=== PATIENT | female | born 1950 | race Caucasian/White ===

== ENCOUNTER 2019-06-09 11:01 | Emergency (ER) | payer MEDICARE, OTHER ==
[~2019-06-09] VITALS: Ht 165.1 cm; Wt 104.3 kg
[2019-06-09] MEDS ORDERED: PAXIL10 MG PO (12:17)
[2019-06-09] MEDS ORDERED: NITROGLYCERIN0.4 MG SUBLING (12:18)
[2019-06-09] MEDS ORDERED: ZYRTEC10 M5 PO (12:18)
[2019-06-09] MEDS ORDERED: ASPIR 8181 MG PO (12:18)
[2019-06-09] MEDS ORDERED: XARELTO20 MG PO (12:19)
[2019-06-09] MEDS ORDERED: LASIX 40 MG TAB40 M2 PO (12:20)
[2019-06-09] MEDS ORDERED: VITAMIN D3400 UNIT PO (12:20)
[2019-06-09] MEDS ORDERED: PRAVACHOL40 MG PO (12:21)
[2019-06-09] MEDS ORDERED: PACERONE 200 M200 M1 PO (12:22)
[2019-06-09] MEDS ORDERED: NORVASC5 MG PO (12:22)
[2019-06-09] MEDS ORDERED: BENAZEPRIL HCL40 MG PO (12:22)
[2019-06-09] MEDS ORDERED: SORINE 80 MG TA80 M1 PO (12:23)
[2019-06-09] MEDS ORDERED: NORCO 5-325 TA1 EAC1 PO (12:27)
[2019-06-09 13:45] VITALS: BP 138/72
== END 2019-06-09 13:46 | disposition home or self-care (01) ==
LOC: M.ERS 11:01
DX: I48.2 Chronic atrial fibrillation (principal); F41.9 Anxiety disorder, unspecified; Z88.5 Allergy status to narcotic agent; Z88.0 Allergy status to penicillin; Z98.890 Other specified postprocedural states; Z95.0 Presence of cardiac pacemaker; S92.252A Displaced fracture of navicular [scaphoid] of left foot, initial encounter for closed fracture; X50.0XXA Overexertion from strenuous movement or load, initial encounter; Y92.89 Other specified places as the place of occurrence of the external cause; Y93.89 Activity, other specified; Y99.8 Other external cause status

== ENCOUNTER → 2019-06-26 | Outpatient (CLI) | payer MEDICARE, OTHER ==
[~2019-06-26] MED LIST: ASPIR 8181 MG PO; BENAZEPRIL HCL40 MG PO; LASIX 40 MG TAB40 M2 PO; NITROGLYCERIN0.4 MG SUBLING; NORCO 5-325 TA1 EAC1 PO; NORVASC5 MG PO; PACERONE 200 M200 M1 PO; PAXIL10 MG PO; PRAVACHOL40 MG PO; SORINE 80 MG TA80 M1 PO; VITAMIN D3400 UNIT PO; XARELTO20 MG PO; ZYRTEC10 M5 PO
== END ==
LOC: M.CT 11:30
DX: S93.326A Dislocation of tarsometatarsal joint of unspecified foot, initial encounter (principal); S96.912A Strain of unspecified muscle and tendon at ankle and foot level, left foot, initial encounter; M19.072 Primary osteoarthritis, left ankle and foot; M77.32 Calcaneal spur, left foot; M25.872 Other specified joint disorders, left ankle and foot; M76.62 Achilles tendinitis, left leg; X58.XXXA Exposure to other specified factors, initial encounter; Y93.89 Activity, other specified; Y92.89 Other specified places as the place of occurrence of the external cause; Y99.8 Other external cause status

== ENCOUNTER 2019-07-23 13:05 | Emergency (ER) | payer MEDICARE, OTHER ==
[~2019-07-23] VITALS: Ht 167.6 cm; Wt 90.7 kg
[2019-07-23] MEDS ORDERED: PROTONIX40 M1 PO (13:24)
[2019-07-23] MEDS ORDERED: NORCO 5-325 TA1 EAC1 PO (14:47)
[2019-07-23] MEDS ORDERED: LIDODERM1 EACH TRANSDERM (14:48)
[2019-07-23] MEDS ORDERED: PERCOCET PO (14:57)
[2019-07-23] MEDS ORDERED: ONDANSETRON HCL4 M2 PO (14:57)
[2019-07-23 15:11] VITALS: BP 134/69
== END 2019-07-23 15:12 | disposition home or self-care (01) ==
LOC: M.ERS 13:05
DX: M25.511 Pain in right shoulder (principal); F41.9 Anxiety disorder, unspecified; Z98.890 Other specified postprocedural states; Z95.0 Presence of cardiac pacemaker; Z88.5 Allergy status to narcotic agent; Z88.0 Allergy status to penicillin

== ENCOUNTER 2019-08-31 09:44 | Emergency (ER) | payer MEDICARE, OTHER ==
[~2019-08-31] VITALS: Ht 170.2 cm; Wt 104.3 kg
[~2019-08-31 09:44] MED LIST changes: +LIDODERM1 EACH TRANSDERM; +ONDANSETRON HCL4 M2 PO; +PERCOCET PO; +PROTONIX40 M1 PO
[2019-08-31 09:57] VITALS: BP 139/85
[2019-08-31] MEDS ORDERED: NORCO 5-325 TA1 EAC1 PO (10:24)
== END 2019-08-31 10:46 | disposition home or self-care (01) ==
LOC: M.ERS 09:44
DX: S63.592A Other specified sprain of left wrist, initial encounter (principal); I48.91 Unspecified atrial fibrillation; F41.9 Anxiety disorder, unspecified; Z88.5 Allergy status to narcotic agent; Z88.0 Allergy status to penicillin; Z98.890 Other specified postprocedural states; W18.39XA Other fall on same level, initial encounter; Y93.89 Activity, other specified; Y92.89 Other specified places as the place of occurrence of the external cause; Y99.8 Other external cause status

== ENCOUNTER → 2019-09-17 | Outpatient (CLI) | payer MEDICARE, OTHER ==
--- NOTE | 2019-09-17 10:32 | 2DMMODE ---
[place] [address] 2 D/M-MODE ECHOCARDIOGRAM Name: AME ARIAS Room: [facility]#: [id number] Admission: 09/17/19 Attend Phys: Renea Chowdhury, Discharge: Date of : 52 Date of Service: 09/17/19 1031 Report #: [id number] THIS REPORT FOR: //name// APPROVED REPORT Study performed: 09/17/2019 07:54:09 EXAM: Comprehensive 2D, Doppler, and color-flow Echocardiogram Patient Location: Out-Patient BSA: 2.11 HR: 60 bpm BP: 118/78 mmHg Other Information Study Quality: Fair Indications Atrial Fibrillation 2D Dimensions IVSd: 13.08 (7-11mm) LVOT Diam: 20.45 (18-24mm) LVDd: 43.91 mm PWd: 10.86 (7-11mm) Ascending Ao: 32.44 (22-36mm) LVDs: 26.73 (25-40mm) Aortic Root: 27.53 mm Volumes Left Atrial Volume (Systole) LA ESV Index: 22.30 mL/m2 Aortic Valve AoV Peak Grey.: 1.72 m/s AO Peak Gr.: 11.88 mmHg LVOT Max P.79 mmHg AO Mean Gr.: 6.14 mmHg LVOT Mean P.84 mmHg LVOT Max V: 0.97 m/s AO V2 VTI: 29.95 cm LVOT Mean V: 0.62 m/s BON (VTI): 2.19 cm2 LVOT V1 VTI: 19.92 cm Mitral Valve E/A Ratio: 1.30 MV Decel. Time: 205.12 ms MV E Max Grey.: 0.56 m/s MV PHT: 59.49 ms MVA (PHT): 3.70 [place] [address] 2 D/M-MODE ECHOCARDIOGRAM Name: AME ARIAS Room: [facility]#: [id number] Admission: 09/17/19 Attend Phys: Renea Chowdhury, Discharge: Date of : 52 Date of Service: 09/17/19 1031 Report #: [id number] TDI E/Lateral E': 5.60 E/Medial E': 9.33 Medial E' Grey.: 0.06 m/s Lateral E' Grey.: 0.10 m/s Pulmonary Valve PV Peak Grey.: 1.02 m/s PV Peak Gr.: 4.15 mmHg Left Ventricle The left ventricle is normal size. There is normal LV segmental wall motion. There is normal left ventricular wall thickness. Left ventricular systolic function is normal. The left ventricular ejection fraction is within the normal range. LVEF is 55-60%. The left ventricular diastolic function is normal. Right Ventricle The right ventricle is normal size. The right ventricular systolic function is normal. Pacemaker lead is present in the right ventricle. Atria The left atrium size is normal. Pacemaker lead is present in the right atrium. Aortic Valve The aortic valve is not well visualized. No aortic regurgitation is present. There is no aortic valvular stenosis. Mitral Valve The mitral valve is normal in structure. Mild mitral regurgitation. No evidence of mitral valve stenosis. Tricuspid Valve The tricuspid valve is normal in structure. There is no tricuspid valve regurgitation noted. Pulmonic Valve The pulmonary valve is normal in structure. There is no pulmonic valvular regurgitation. Great Vessels The aortic root is normal in size. IVC is not well visualized. Pericardium There [place] [address] 2 D/M-MODE ECHOCARDIOGRAM Name: AME ARIAS Room: [facility]#: [id number] Admission: 09/17/19 Attend Phys: Renea Chowdhury, Discharge: Date of : 52 Date of Service: 09/17/19 1031 Report #: [id number] <Conclusion> LVEF is 55-60%. Mild mitral regurgitation. <ELECTRONICALLY SIGNED> By: Fabio Webb MD, FACC 09/17/191030 30 30 Fabio Webb MD, [facility] /INF
--- NOTE | 2019-09-19 08:52 | PF ---
[place] [address] PULMONARY FUNCTION REPORT Name: AME ARIAS Room: [facility] Bran#: [id number] Admission: 09/17/19 Attend Phys: Renea Chowdhury RN Discharge: Date of : 52 Report #: [id number] THIS REPORT FOR: //name// CC: Shahida Chowdhury DATE OF SERVICE: 09/17/2019 REQUESTING PHYSICIAN: Renea Chowdhury, nurse practitioner. Spirometry was done revealing a normal FEV1 of 2.21, which was 93% of predicted. FEV1/FVC ratio was 81%. No significant change seen after inhaled bronchodilator. Mid flows were at lower range of normal. Lung volumes by postop plethysmography reveal a normal TLC and other volumes. Diffusion capacity was mildly diminished. IMPRESSION: Essentially normal pulmonary function studies with only very minimal decrease in flows at the level of the small airways. Clinical correlation is advised. <ELECTRONICALLY SIGNED> By: Debbie Damon MD 09/19/19 0852 1040 [id number] Damon MD /nt
== END ==
LOC: M.CRD 08-27 18:23
DX: I34.0 Nonrheumatic mitral (valve) insufficiency (principal); I48.0 Paroxysmal atrial fibrillation; I10 Essential (primary) hypertension; Z95.0 Presence of cardiac pacemaker; Z79.899 Other long term (current) drug therapy

== ENCOUNTER → 2019-09-23 | Outpatient (CLI) | payer MEDICARE, OTHER | LOC: M.RAD 14:45 | DX: R91.8 Other nonspecific abnormal finding of lung field (principal); Z79.899 Other long term (current) drug therapy; Z95.0 Presence of cardiac pacemaker; Z88.8 Allergy status to other drugs, medicaments and biological substances ==

== ENCOUNTER → 2019-09-24 | Outpatient (CLI) | payer MEDICARE, OTHER | LOC: M.LAB 13:55 | DX: E03.9 Hypothyroidism, unspecified (principal) ==

== ENCOUNTER → 2019-12-31 | Outpatient (CLI) | payer MEDICARE, OTHER ==
[~2019-12-31] MED LIST changes: +PACERONE200 MG PO
[2019-12-31 09:50] VITALS: BP 131/87
[2019-12-31 09:54] LABS: HEMATOCRIT 40.1 % (37.0-47.0); HEMOGLOBIN 13.8 gm/dL (12.0-15.0); MCH 33.2 pg (26.0-34.0); MCHC 34.5 g/dL (28.0-37.0); MCV 96.4 fL (80.0-100.0); MPV 7.9 fl. (7.2-11.1); RBC 4.16 mil/uL (4.20-5.00); RDW-CV 14.2 % (10.5-14.5)
[2019-12-31 10:06] LABS: CALCIUM 8.6 mg/dL (8.5-10.1); CREATININE 1.3 mg/dL (0.6-1.3); POTASSIUM 4.1 mmol/L (3.5-5.1)
[2019-12-31 10:10] LABS: ALBUMIN 3.2 g/dL (3.4-5.0); TOTAL BILIRUBIN 0.7 mg/dL (<0.1-1.0); TOTAL PROTEIN 7.6 g/dL (6.4-8.2)
[2019-12-31 10:35] VITALS: BP 132/68
[2019-12-31 10:40] VITALS: BP 112/60
[2019-12-31 11:02] VITALS: BP 114/80
== END | disposition home or self-care (01) ==
LOC: M.CL 09:21
PROVIDERS: Internal Medicine Cardiovascular Disease
DX: I48.21 Permanent atrial fibrillation (principal); I10 Essential (primary) hypertension; I25.10 Atherosclerotic heart disease of native coronary artery without angina pectoris; G47.30 Sleep apnea, unspecified; E78.2 Mixed hyperlipidemia; Z79.01 Long term (current) use of anticoagulants; Z95.0 Presence of cardiac pacemaker; Z98.890 Other specified postprocedural states; Z87.891 Personal history of nicotine dependence; Z88.0 Allergy status to penicillin; Z88.8 Allergy status to other drugs, medicaments and biological substances; Z79.899 Other long term (current) drug therapy; Z87.442 Personal history of urinary calculi

== ENCOUNTER 2020-01-01 23:32 | Inpatient (IN) | payer MEDICARE, OTHER ==
[~2020-01-01] VITALS: Ht 170.2 cm; Wt 111.6 kg
[~2020-01-01 23:32] MED LIST changes: -PACERONE200 MG PO
[2020-01-01] MEDS ORDERED: PACERONE200 MG PO (23:40)
[2020-01-01 23:41] VITALS: BP 155/84
[2020-01-02 00:16] LABS: ABSOLUTE BASOPHILS 0.1 thou/uL (0.0-0.2); ABSOLUTE EOSINOPHILS 0.4 thou/uL (0.0-0.7); ABSOLUTE LYMPHOCYTES 1.6 thou/uL (0.8-5.3); ABSOLUTE MONOCYTES 0.8 thou/uL (0.0-1.2); ABSOLUTE NEUTROPHILS 5.4 thou/uL (1.6-8.1); EOSINOPHILS 4.5 %; HEMATOCRIT 36.4 % (37.0-47.0); HEMOGLOBIN 12.6 gm/dL (12.0-15.0); LYMPHOCYTES 18.9 %; MCH 33.5 pg (26.0-34.0); MCHC 34.6 g/dL (28.0-37.0); MCV 96.7 fL (80.0-100.0); MPV 7.8 fl. (7.2-11.1); NUCLEATED RBCS 0 /100WBC; PLATELET COUNT* 296 thou/uL (150-400); POLYS 65.6 %; RBC 3.76 mil/uL (4.20-5.00); WBC 8.2 thou/uL (4.0-11.0)
[2020-01-02 00:27] LABS: CALCIUM 8.5 mg/dL (8.5-10.1); CREATININE 1.3 mg/dL (0.6-1.3); POTASSIUM 3.8 mmol/L (3.5-5.1)
[2020-01-02 00:28] LABS: INR 1.2; PROTIME 12.5 Seconds (9.20-11.50)
[2020-01-02 00:38] LABS: ALBUMIN 2.9 g/dL (3.4-5.0); TOTAL BILIRUBIN 0.5 mg/dL (<0.1-1.0); TOTAL PROTEIN 6.9 g/dL (6.4-8.2)
[2020-01-02 02:15] VITALS: BP 134/75
[2020-01-02 02:27] LABS: INFLUENZA A ANTIGEN Negative (Negative); INFLUENZA B ANTIGEN Negative (Negative)
[2020-01-02 02:36] VITALS: BP 144/80
[2020-01-02 08:20] VITALS: BP 111/59
[2020-01-02 11:49] VITALS: BP 118/48
[2020-01-02 13:45] LABS: CALCIUM 8.3 mg/dL (8.5-10.1); CREATININE 1.2 mg/dL (0.6-1.3); MAGNESIUM 1.8 mg/dL (1.8-2.4)
--- NOTE | 2020-01-02 16:37 | EKG ---
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
--- NOTE | 2020-01-02 18:19 | 2DMMODE ---
[facility] [address] [place] [address] 2 D/M-MODE ECHOCARDIOGRAM Name: HUGOAME Silvia Room: [facility]- ADM IN .R#: [id number] Admission: 01/02/20 Attend Phys: Yinka Barajas Discharge: Date of : 52 Date of Service: 01/02/20 1817 Report #: [id number] THIS REPORT FOR: cc: Barrington Berrios Gary DO Liston, Michael J. MD [facility] ~ APPROVED REPORT Study performed: 01/02/2020 13:49:49 EXAM: Limited 2D Echocardiogram Patient Location: In-Patient Room #: [facility] Status: routine BSA: 2.21 HR: 68 bpm BP: 118/48 mmHg Rhythm: NSR Other Information Study Quality: Good Indications Dyspnea Volumes Left Atrial Volume (Systole) LA ESV Index: 51.80 mL/m2 Left Ventricle The left ventricle is normal size. There is normal LV segmental wall motion. Mild concentric left ventricular hypertrophy. The left ventricular systolic function is normal. LVEF is 55-60%. Right Ventricle The right ventricle is normal size. The right ventricular systolic function is normal. Atria Left atrium is moderately dilated. Aortic Valve The aortic valve is normal in structure. Mitral Valve [place] [address] 2 D/M-MODE ECHOCARDIOGRAM Name: HUGOAME Silvia Room: [address] ADM IN M.R.#: [id number] Admission: 01/02/20 Attend Phys: Yinka Barajas Discharge: Date of : 52 Date of Service: 01/02/201816 Report #: [id number] The mitral valve is normal in structure. Trace mitral regurgitation. Tricuspid Valve The tricuspid valve is normal in structure. Trace tricuspid regurgitation. Pulmonic Valve The pulmonary valve is normal in structure. Great Vessels The aortic root is normal in size. IVC is not well visualized. Pericardium There is no pericardial effusion. <Conclusion> The left ventricle is normal size. Mild concentric left ventricular hypertrophy. The left ventricular systolic function is normal. LVEF is 55-60%. Left atrium is moderately dilated. <ELECTRONICALLY SIGNED> By: Moody Osborne MD, FACC 01/02/201816 16 16 Moody Osborne MD, FACC /INF
[2020-01-02 18:24] VITALS: BP 122/53
[2020-01-02 20:00] VITALS: BP 122/65
[2020-01-03] VITALS: BP 141/63
[2020-01-03 04:00] VITALS: BP 103/44
[2020-01-03 08:00] VITALS: BP 99/45
[2020-01-03 11:40] LABS: HEMATOCRIT 34.4 % (37.0-47.0); HEMOGLOBIN 11.7 gm/dL (12.0-15.0); MCH 33.2 pg (26.0-34.0); MCHC 34.1 g/dL (28.0-37.0); MCV 97.6 fL (80.0-100.0); MPV 8.4 fl. (7.2-11.1); RBC 3.53 mil/uL (4.20-5.00); RDW-CV 14.2 % (10.5-14.5); WBC 11.4 thou/uL (4.0-11.0)
[2020-01-03 12:03] LABS: CALCIUM 7.9 mg/dL (8.5-10.1); CREATININE 1.2 mg/dL (0.6-1.3); MAGNESIUM 1.9 mg/dL (1.8-2.4); POTASSIUM 3.4 mmol/L (3.5-5.1)
[2020-01-03 12:08] VITALS: BP 159/78
[2020-01-03 16:16] VITALS: BP 140/49
[2020-01-03 20:00] VITALS: BP 120/60
[2020-01-04 00:30] VITALS: BP 144/71
[2020-01-04 04:06] LABS: ABSOLUTE LYMPHOCYTES 1.1 thou/uL (0.8-5.3); ABSOLUTE NEUTROPHILS 9.5 thou/uL (1.6-8.1); BASOPHILS 0.2 %; EOSINOPHILS 0.1 %; HEMATOCRIT 34.4 % (37.0-47.0); HEMOGLOBIN 11.7 gm/dL (12.0-15.0); LYMPHOCYTES 9.1 %; MCHC 33.9 g/dL (28.0-37.0); MCV 97.5 fL (80.0-100.0); MONOCYTES 8.8 %; MPV 7.7 fl. (7.2-11.1); NUCLEATED RBCS 0 /100WBC; PLATELET COUNT* 288 thou/uL (150-400); POLYS 81.8 %; RBC 3.53 mil/uL (4.20-5.00); RDW-CV 14.2 % (10.5-14.5); WBC 11.6 thou/uL (4.0-11.0)
[2020-01-04 04:26] VITALS: BP 132/72
[2020-01-04 04:30] LABS: CREATININE 1.1 mg/dL (0.6-1.3); MAGNESIUM 2.1 mg/dL (1.8-2.4)
[2020-01-04 08:00] VITALS: BP 119/64
[2020-01-04 12:51] VITALS: BP 105/49
[2020-01-04 16:00] VITALS: BP 86/45
[2020-01-04 20:00] VITALS: BP 108/42
[2020-01-05] VITALS (7 sets, daily range): BP systolic 92–139; BP diastolic 32–62
[2020-01-05 04:57] LABS: HEMATOCRIT 31.8 % (37.0-47.0); HEMOGLOBIN 10.9 gm/dL (12.0-15.0); MCH 33.4 pg (26.0-34.0); MCHC 34.2 g/dL (28.0-37.0); MCV 97.7 fL (80.0-100.0); MPV 7.5 fl. (7.2-11.1); RBC 3.25 mil/uL (4.20-5.00); WBC 10.5 thou/uL (4.0-11.0)
[2020-01-05 05:26] LABS: CREATININE 1.2 mg/dL (0.6-1.3); MAGNESIUM 2.1 mg/dL (1.8-2.4); POTASSIUM 3.9 mmol/L (3.5-5.1)
[2020-01-06 03:50] VITALS: BP 108/63
[2020-01-06 05:56] LABS: CALCIUM 7.7 mg/dL (8.5-10.1); CREATININE 1.2 mg/dL (0.6-1.3); MAGNESIUM 2.3 mg/dL (1.8-2.4); POTASSIUM 4.1 mmol/L (3.5-5.1)
[2020-01-06 08:00] VITALS: BP 95/46
[2020-01-06 09:53] LABS: ABSOLUTE BASOPHILS 0.1 thou/uL (0.0-0.2); ABSOLUTE EOSINOPHILS 0.2 thou/uL (0.0-0.7); ABSOLUTE LYMPHOCYTES 1.1 thou/uL (0.8-5.3); ABSOLUTE MONOCYTES 1.3 thou/uL (0.0-1.2); ABSOLUTE NEUTROPHILS 8.9 thou/uL (1.6-8.1); BASOPHILS 1.1 %; EOSINOPHILS 1.4 %; HEMATOCRIT 31.2 % (37.0-47.0); HEMOGLOBIN 10.6 gm/dL (12.0-15.0); LYMPHOCYTES 9.3 %; MCH 33.4 pg (26.0-34.0); MCV 98.3 fL (80.0-100.0); MONOCYTES 11.5 %; MPV 8.1 fl. (7.2-11.1); NUCLEATED RBCS 0 /100WBC; PLATELET COUNT* 310 thou/uL (150-400); POLYS 76.7 %; RBC 3.17 mil/uL (4.20-5.00); RDW-CV 14.1 % (10.5-14.5); WBC 11.6 thou/uL (4.0-11.0)
--- NOTE | 2020-01-06 13:44 | CON ---
[address] [address] CONSULTATION Name: AME ARIAS Room: [address] IN .R.#: [id number] Admission: 01/02/20 Attend Phys: Silvia Guerrier Discharge: Date of : 52 Report #: [id number] THIS REPORT FOR: //name// cc: Barrington Berrios Gary DO ~ THIS REPORT FOR: //name// CC: Barrington Barajas DATE OF SERVICE: 01/06/2020 INFECTIOUS DISEASE CONSULTATION ATTENDING PHYSICIAN: Yinka Barajas DO REASON FOR EVALUATION: Evaluation for COVID-19. HISTORY OF PRESENT ILLNESS: Chart reviewed, patient examined. This is a 69-year-old with history of chronic AFib, anxiety who presented to the Emergency Room on the with complaints of dyspnea, seemed to be worse traditionally when lying flat. She is on diuretic for associated lower extremity swelling as well. Had not had any chest pain, abdominal pain, nausea, vomiting or diarrhea. Initial chest x-ray showed some changes intermittently throughout the hospitalization. There are some low-grade temperature elevations, the highest recorded was 99.8. She is coughing quite a bit at this point. She is generally lucid. She has been on levofloxacin. There has been progression on her chest x-ray that involves bilateral pulmonary infiltrates. ALLERGIES: PENICILLIN, CODEINE. MEDICATIONS: Include fluticasone, budesonide, furosemide, benzonatate, guaifenesin, atorvastatin, rivaroxaban, levofloxacin, promethazine as needed. PAST MEDICAL HISTORY: As described above, anxiety, chronic atrial fibrillation, implantable cardiac event monitor pacemaker. SOCIAL HISTORY: Former smoker. Fairly regular ethanol use. No illicit drug use. FAMILY HISTORY: Noncontributory. REVIEW OF SYSTEMS: Otherwise, unremarkable. PHYSICAL EXAMINATION: GENERAL: She is alert, cooperative, appropriate[place] [address] CONSULTATION Name: HUGOAME D Room: [address]#: [id number] Admission: 01/02/20 Attend Phys: Silvia Guerrier Discharge: Date of : 52 Report #: [id number] respiratory distress. She is on supplemental oxygen. VITAL SIGNS: Temperature 99.0, pulse 60, respirations 16, blood pressure 108/63. SKIN: Warm, dry, no rashes. HEENT: Normocephalic. Extraocular muscles intact. NECK: Supple. LUNGS: Few scattered coarse breath sounds. HEART: Regular. I do not appreciate a murmur. ABDOMEN: Soft, nontender, nondistended. EXTREMITIES: No cyanosis. GENITOURINARY: Deferred. RECTAL: Deferred. LABORATORY DATA: CBC: White count elevated at 11.6, 11.4 on admission; hemoglobin and hematocrit 10.6 and 31.2; platelets of 310. She does have a lymphocytopenia. She was noted to be 1100. Chest x-ray showed cardiomegaly with moderately extensive bilateral infiltrates, low overall change. The infiltrates may represent edema. MRSA was negative per surveillance. Sodium 134, potassium 4.1, chloride 101, bicarb is 31, anion gap of 2, BUN and creatinine 25 and 1.2, glucose of 125. Estimated GFR 45. Pneumococcal and legionella urinary antigens were negative. Blood cultures are sterile thus far. ASSESSMENT AND PLAN: Low-grade fevers, cough. The patient certainly has other potential causes including congestive heart failure; however, given the symptomatology, it is reasonable to go ahead and test for COVID-19. We will put her in isolation. We did instruct the patient and the family about the details of how this would be from their perspective. At this point, she is not overtly toxic. We will monitor expectantly, certainly if her signs and symptoms of worsening clinical picture. <ELECTRONICALLY SIGNED> By: Mansoor Preciado MD 01/06/20 1344 1202 1337Jopriyanka Preciado MD /nt
[2020-01-06 16:00] VITALS: BP 113/59
[2020-01-06 19:55] VITALS: BP 119/37
[2020-01-06 23:44] VITALS: BP 117/52
[2020-01-07 04:25] VITALS: BP 115/43
[2020-01-07 06:26] LABS: ABSOLUTE BASOPHILS 0.1 thou/uL (0.0-0.2); ABSOLUTE EOSINOPHILS 0.1 thou/uL (0.0-0.7); ABSOLUTE LYMPHOCYTES 0.9 thou/uL (0.8-5.3); ABSOLUTE MONOCYTES 1.6 thou/uL (0.0-1.2); ABSOLUTE NEUTROPHILS 9.8 thou/uL (1.6-8.1); BASOPHILS 0.9 %; EOSINOPHILS 1.2 %; HEMATOCRIT 30.7 % (37.0-47.0); HEMOGLOBIN 10.5 gm/dL (12.0-15.0); LYMPHOCYTES 7.4 %; MCH 33.4 pg (26.0-34.0); MCHC 34.2 g/dL (28.0-37.0); MCV 97.6 fL (80.0-100.0); MONOCYTES 12.9 %; MPV 7.6 fl. (7.2-11.1); NUCLEATED RBCS 0 /100WBC; PLATELET COUNT* 340 thou/uL (150-400); POLYS 77.6 %; RBC 3.15 mil/uL (4.20-5.00); RDW-CV 13.9 % (10.5-14.5); WBC 12.7 thou/uL (4.0-11.0)
[2020-01-07 06:41] LABS: CREATININE 1.1 mg/dL (0.6-1.3); POTASSIUM 4.5 mmol/L (3.5-5.1)
[2020-01-07 08:00] VITALS: BP 101/46
[2020-01-07 11:48] VITALS: BP 105/58
[2020-01-07 16:44] VITALS: BP 112/65
[2020-01-07 19:25] VITALS: BP 145/50
[2020-01-07 23:52] VITALS: BP 112/40
[2020-01-08 04:03] VITALS: BP 164/83
[2020-01-08 08:00] VITALS: BP 115/47
[2020-01-08 12:00] VITALS: BP 104/61
[2020-01-08 16:00] VITALS: BP 94/60
[2020-01-08 20:00] VITALS: BP 111/57
[2020-01-09 00:05] VITALS: BP 141/69
[2020-01-09 04:18] VITALS: BP 97/44
[2020-01-09 04:41] LABS: ABSOLUTE BASOPHILS 0.1 thou/uL (0.0-0.2); ABSOLUTE EOSINOPHILS 0.2 thou/uL (0.0-0.7); ABSOLUTE LYMPHOCYTES 1.2 thou/uL (0.8-5.3); ABSOLUTE MONOCYTES 1.7 thou/uL (0.0-1.2); ABSOLUTE NEUTROPHILS 10.1 thou/uL (1.6-8.1); BASOPHILS 0.6 %; EOSINOPHILS 1.5 %; HEMATOCRIT 29.6 % (37.0-47.0); LYMPHOCYTES 9.1 %; MCH 32.8 pg (26.0-34.0); MCHC 33.8 g/dL (28.0-37.0); MONOCYTES 12.7 %; MPV 7.4 fl. (7.2-11.1); NUCLEATED RBCS 0 /100WBC; PLATELET COUNT* 356 thou/uL (150-400); POLYS 76.1 %; RBC 3.05 mil/uL (4.20-5.00); RDW-CV 13.9 % (10.5-14.5); WBC 13.3 thou/uL (4.0-11.0)
[2020-01-09 05:02] LABS: CALCIUM 7.6 mg/dL (8.5-10.1); POTASSIUM 4.2 mmol/L (3.5-5.1); TOTAL BILIRUBIN 0.9 mg/dL (<0.1-1.0); TOTAL PROTEIN 5.9 g/dL (6.4-8.2)
[2020-01-09 08:00] VITALS: BP 108/46
[2020-01-09 14:08] VITALS: BP 106/34
[2020-01-09 17:54] VITALS: BP 106/46
[2020-01-09 20:00] VITALS: BP 104/44
[2020-01-10 00:16] VITALS: BP 119/52
[2020-01-10 04:00] VITALS: BP 110/67
[2020-01-10 04:32] LABS: ABSOLUTE LYMPHOCYTES 0.6 thou/uL (0.8-5.3); ABSOLUTE MONOCYTES 1.3 thou/uL (0.0-1.2); ABSOLUTE NEUTROPHILS 11.2 thou/uL (1.6-8.1); BASOPHILS 0.3 %; HEMATOCRIT 30.3 % (37.0-47.0); HEMOGLOBIN 10.2 gm/dL (12.0-15.0); LYMPHOCYTES 4.8 %; MCH 33.1 pg (26.0-34.0); MCHC 33.8 g/dL (28.0-37.0); MCV 98.1 fL (80.0-100.0); MONOCYTES 9.9 %; MPV 7.5 fl. (7.2-11.1); NUCLEATED RBCS 0 /100WBC; RBC 3.09 mil/uL (4.20-5.00); RDW-CV 14.1 % (10.5-14.5); WBC 13.2 thou/uL (4.0-11.0)
[2020-01-10 04:47] LABS: ALBUMIN 2.1 g/dL (3.4-5.0); CALCIUM 7.9 mg/dL (8.5-10.1); CREATININE 0.9 mg/dL (0.6-1.3); POTASSIUM 4.7 mmol/L (3.5-5.1); TOTAL BILIRUBIN 0.8 mg/dL (<0.1-1.0); TOTAL PROTEIN 6.3 g/dL (6.4-8.2)
[2020-01-10 04:55] LABS: PLATELET COUNT* 433 thou/uL (150-400)
[2020-01-10 08:00] VITALS: BP 115/68
--- NOTE | 2020-01-10 13:31 | CON ---
[facility] [address] [place] [address] CONSULTATION Name: AME ARIAS Room: [address] IN .R.#: [id number] Admission: 01/02/20 Attend Phys: Silvia Guerrier Discharge: Date of : 52 Report #: [id number] THIS REPORT FOR: //name// cc: Barrington Berrios Gary DO ~ THIS REPORT FOR: //name// CC: Shahida Barajas DATE OF SERVICE: 01/10/2020 CARDIOLOGY CONSULTATION HISTORY OF PRESENT ILLNESS: The patient is a 69-year-old single white female who I was asked to see in the hospital today because of shortness of breath. The patient has an extensive past medical history. Unfortunately, most of her care was performed in [place]. The patient apparently had two coronary stents placed in [place] many years ago. She has a history of atrial fibrillation and underwent ablation in [place]. She eventually had a [employer] pacemaker inserted in [place]. Recently, she has been followed by my partner, Dr. Moody Osborne. She has been on amiodarone and anticoagulated for years. She apparently was admitted to [place] three weeks ago with pneumonia. She underwent cardioversion by Dr. Osborne. She was at home for about three days, but readmitted a week ago with shortness of breath and cough. She apparently was tested for coronavirus, which was negative. However, she continues to be short of breath and coughed. I was asked to see her for further evaluation and treatment. She denies any chest tightness, palpitations or bleeding. PAST MEDICAL AND SURGICAL HISTORY: She has had ankle arthroscopy in the past, , previous colonoscopy. She has a history of hypertension, hyperlipidemia, sleep apnea, although right now she is not using CPAP. CURRENT MEDICATIONS: Consist of the following: She is on amiodarone 200 mg twice a day, Norvasc 5 mg a day, aspirin 81 mg a day, benazepril, Lasix, Paxil, pravastatin, Xarelto. ALLERGIES: SHE HAS PREVIOUS ALLERGIES TO CODEINE AND PENICILLIN. FAMILY HISTORY: Positive for heart disease. SOCIAL HISTORY: She is , lives by herself here in [place]. Quit smoking years ago, [place] [address] CONSULTATION Name: MAE ARIAS Room: [address]#: [id number] Admission: 01/02/20 Attend Phys: Silvia Guerrier Discharge: Date of : 52 Report #: [id number] REVIEW OF SYSTEMS: She has apparently had no history of stroke, asthma, liver disease. She has had a kidney stone. No cancer. No psychiatric illness. PHYSICAL EXAMINATION: GENERAL: Revealed a large elderly female. She was 5 feet 4 inches, weighing 234 pounds. VITAL SIGNS: She had a blood pressure of 110/70, pulse 60. She is afebrile. HEENT: She was anicteric. Conjunctivae are pink. Mucous membranes appear moist. NECK: Veins do not appear distended. CHEST: Revealed decreased breath sounds at bases. CARDIOVASCULAR: Regular rate and rhythm. ABDOMEN: Obese. EXTREMITIES: Had no pitting edema. SKIN: Cool and dry. NEUROLOGIC: Nonfocal. DIAGNOSTIC DATA: Her ECG shows what appears to be a sinus rhythm with occasional atrial paced beats, nonspecific ST segment changes. Her echocardiogram done on 01/01 when she was here three weeks ago showed an ejection fraction of 60%, left ventricular hypertrophy, left atrial enlargement. Her CT scan of the chest that was performed yesterday showed atherosclerosis of the aorta, coronary calcification, evidence of a pacemaker, interstitial infiltrates, possible pneumonia. Her chest x-ray was done four days ago that showed cardiomegaly, bilateral infiltrates. LABORATORY DATA: Sodium 136, BUN 16, creatinine 0.9. Liver function studies were normal. Troponin 0.06. BNP 304. TSH 4.7. White blood cell count 13.2, hematocrit 30.3. IMPRESSION AND RECOMMENDATIONS: 1. Pulmonary infiltrates. Possible amiodarone toxicity, I would discontinue it. Continue Xarelto. If she has recurrent atrial fibrillation, I will consider rate control only. 2. Sick sinus syndrome. The patient has a pacemaker in place. 3. Hypertension. The patient is on a calcium barry, JAMES inhibitor. 4. Hyperlipidemia. The patient is on a statin drug. 5. Obesity. 6. Sleep apnea. The patient is on BiPAP. 7. Coronary artery disease. Previous stents. Since the patient is on Xarelto, I would not recommend aspirin. [address] [place] [address] CONSULTATION Name: AME ARIAS Room: [address] IN ..#: [id number] Admission: 01/02/20 Attend Phys: Silvia Guerrier Discharge: Date of : 52 Report #: [id number] 8. Previous implantation of a pacemaker. Pacemaker appears to be functioning normally at this time. <ELECTRONICALLY SIGNED> By: Fabio Webb MD, FACC 01/10/20 1331 0857 1022Dwaleska Webb MD, FACC /nt
[2020-01-10 15:54] VITALS: BP 99/60
[2020-01-10 16:04] LABS: URINE BILIRUBIN NEGATIVE (Negative); URINE BLOOD NEGATIVE (Negative); URINE CLARITY CLEAR; URINE COLOR YELLOW; URINE GLUCOSE-RANDOM NEGATIVE (Negative); URINE KETONES NEGATIVE (Negative); URINE LEUKOCYTES NEGATIVE (Negative); URINE NITRITE NEGATIVE (Negative); URINE PROTEIN NEGATIVE (Negative); URINE SPECIFIC GRAVITY >= 1.030 (1.005-1.030); URINE UROBILINOGEN 0.2 E.U./dl (0.2-1.0)
[2020-01-10 19:05] VITALS: BP 110/58
[2020-01-10 20:00] VITALS: BP 127/68
[2020-01-11] VITALS (7 sets, daily range): BP systolic 90–126; BP diastolic 40–78
[2020-01-11 05:45] LABS: ABSOLUTE BASOPHILS 0.1 thou/uL (0.0-0.2); ABSOLUTE LYMPHOCYTES 0.7 thou/uL (0.8-5.3); ABSOLUTE MONOCYTES 1.5 thou/uL (0.0-1.2); ABSOLUTE NEUTROPHILS 12.8 thou/uL (1.6-8.1); BASOPHILS 0.6 %; EOSINOPHILS 0.3 %; HEMATOCRIT 29.3 % (37.0-47.0); HEMOGLOBIN 9.9 gm/dL (12.0-15.0); LYMPHOCYTES 4.9 %; MCH 32.8 pg (26.0-34.0); MCHC 33.9 g/dL (28.0-37.0); MCV 96.8 fL (80.0-100.0); MONOCYTES 10.1 %; MPV 7.4 fl. (7.2-11.1); NUCLEATED RBCS 0 /100WBC; PLATELET COUNT* 505 thou/uL (150-400); POLYS 84.1 %; RBC 3.03 mil/uL (4.20-5.00); RDW-CV 13.9 % (10.5-14.5); WBC 15.2 thou/uL (4.0-11.0)
[2020-01-11 06:07] LABS: CALCIUM 7.6 mg/dL (8.5-10.1); CREATININE 1.2 mg/dL (0.6-1.3); POTASSIUM 4.1 mmol/L (3.5-5.1); TOTAL BILIRUBIN 0.8 mg/dL (<0.1-1.0)
[2020-01-12] VITALS: BP 143/68
[2020-01-12 04:00] VITALS: BP 99/43
[2020-01-12 04:31] LABS: ABSOLUTE BASOPHILS 0.1 thou/uL (0.0-0.2); ABSOLUTE EOSINOPHILS 0.2 thou/uL (0.0-0.7); ABSOLUTE LYMPHOCYTES 1.5 thou/uL (0.8-5.3); ABSOLUTE MONOCYTES 1.4 thou/uL (0.0-1.2); ABSOLUTE NEUTROPHILS 11.7 thou/uL (1.6-8.1); BASOPHILS 0.6 %; EOSINOPHILS 1.1 %; HEMATOCRIT 29.2 % (37.0-47.0); HEMOGLOBIN 9.9 gm/dL (12.0-15.0); MCH 32.6 pg (26.0-34.0); MCHC 33.8 g/dL (28.0-37.0); MCV 96.5 fL (80.0-100.0); MONOCYTES 9.5 %; MPV 7.3 fl. (7.2-11.1); NUCLEATED RBCS 0 /100WBC; PLATELET COUNT* 528 thou/uL (150-400); POLYS 78.8 %; RBC 3.02 mil/uL (4.20-5.00); RDW-CV 14.1 % (10.5-14.5); WBC 14.8 thou/uL (4.0-11.0)
[2020-01-12 04:49] LABS: ALBUMIN 1.9 g/dL (3.4-5.0); CALCIUM 7.7 mg/dL (8.5-10.1); POTASSIUM 3.9 mmol/L (3.5-5.1); TOTAL BILIRUBIN 0.8 mg/dL (<0.1-1.0); TOTAL PROTEIN 5.9 g/dL (6.4-8.2)
[2020-01-12 08:00] VITALS: BP 104/47
[2020-01-12 11:56] VITALS: BP 110/38
[2020-01-12 15:07] LABS: ADENOVIRUS Negative (Negative); INFLUENZA A Negative (Negative); INFLUENZA B Negative (Negative); METAPNEUMOVIRUS Negative (Negative); PARAINFLUENZA 1 Negative (Negative); PARAINFLUENZA 2 Negative (Negative); PARAINFLUENZA 3 Negative (Negative); RHINOVIRUS Negative (Negative); RSV A Negative (Negative); RSV B Negative (Negative)
[2020-01-12 16:19] VITALS: BP 113/50
[2020-01-12 20:00] VITALS: BP 129/50
[2020-01-13 00:17] VITALS: BP 115/44
[2020-01-13 04:32] VITALS: BP 96/70
[2020-01-13 04:54] LABS: HEMATOCRIT 30.1 % (37.0-47.0); HEMOGLOBIN 10.1 gm/dL (12.0-15.0); MCH 32.2 pg (26.0-34.0); MCHC 33.5 g/dL (28.0-37.0); MCV 96.1 fL (80.0-100.0); MPV 7.3 fl. (7.2-11.1); NUCLEATED RBCS 0 /100WBC; RBC 3.13 mil/uL (4.20-5.00); RDW-CV 14.2 % (10.5-14.5); WBC 18.1 thou/uL (4.0-11.0)
[2020-01-13 04:57] LABS: PLATELET COUNT* 620 thou/uL (150-400)
[2020-01-13 05:38] LABS: CALCIUM 7.8 mg/dL (8.5-10.1); CREATININE 0.9 mg/dL (0.6-1.3); POTASSIUM 4.8 mmol/L (3.5-5.1); TOTAL BILIRUBIN 0.7 mg/dL (<0.1-1.0); TOTAL PROTEIN 5.5 g/dL (6.4-8.2)
[2020-01-13 06:13] LABS: ABSOLUTE LYMPHOCYTES 0.5 thou/uL (0.8-5.3); ABSOLUTE MONOCYTES 0.2 thou/uL (0.0-1.2); ABSOLUTE NEUTROPHILS 17.4 thou/uL (1.6-8.1); PLATELET ESTIMATE INCREASED
[2020-01-13 06:14] LABS: TOXIC GRANULATION 1+
[2020-01-13 08:00] VITALS: BP 97/45
[2020-01-13 13:04] VITALS: BP 98/55
[2020-01-13 17:51] VITALS: BP 122/56
[2020-01-13 20:26] VITALS: BP 105/57
[2020-01-14] VITALS: BP 124/60
[2020-01-14 04:00] VITALS: BP 107/48
[2020-01-14 05:34] LABS: ABSOLUTE LYMPHOCYTES 0.7 thou/uL (0.8-5.3); ABSOLUTE MONOCYTES 0.8 thou/uL (0.0-1.2); ABSOLUTE NEUTROPHILS 19.9 thou/uL (1.6-8.1); BASOPHILS 0.2 %; HEMATOCRIT 31.4 % (37.0-47.0); HEMOGLOBIN 10.5 gm/dL (12.0-15.0); LYMPHOCYTES 3.2 %; MCH 32.2 pg (26.0-34.0); MCHC 33.6 g/dL (28.0-37.0); MONOCYTES 3.6 %; NUCLEATED RBCS 0 /100WBC; RBC 3.27 mil/uL (4.20-5.00); RDW-CV 14.3 % (10.5-14.5); WBC 21.4 thou/uL (4.0-11.0)
[2020-01-14 05:38] LABS: PLATELET COUNT* 739 thou/uL (150-400)
[2020-01-14 05:47] LABS: ALBUMIN 2.1 g/dL (3.4-5.0); CALCIUM 7.8 mg/dL (8.5-10.1); POTASSIUM 4.3 mmol/L (3.5-5.1); TOTAL BILIRUBIN 0.7 mg/dL (<0.1-1.0); TOTAL PROTEIN 6.1 g/dL (6.4-8.2)
[2020-01-14 12:00] VITALS: BP 85/37
[2020-01-14 16:00] VITALS: BP 123/77
[2020-01-14 20:14] VITALS: BP 129/60
[2020-01-14 21:06] LABS: MYCOPLASMA PNEUMONIA IgG 158 U/mL (0-99); MYCOPLASMA PNEUMONIA IgM <770 U/mL (0-769)
[2020-01-15] VITALS (7 sets, daily range): BP systolic 110–177; BP diastolic 60–87
[2020-01-15 06:35] LABS: ABSOLUTE LYMPHOCYTES 0.4 thou/uL (0.8-5.3); ABSOLUTE MONOCYTES 0.6 thou/uL (0.0-1.2); ABSOLUTE NEUTROPHILS 15.5 thou/uL (1.6-8.1); BASOPHILS 0.1 %; HEMATOCRIT 29.3 % (37.0-47.0); HEMOGLOBIN 9.9 gm/dL (12.0-15.0); LYMPHOCYTES 2.5 %; MCH 32.4 pg (26.0-34.0); MCHC 33.7 g/dL (28.0-37.0); MCV 96.2 fL (80.0-100.0); MONOCYTES 3.8 %; MPV 7.1 fl. (7.2-11.1); NUCLEATED RBCS 0 /100WBC; PLATELET COUNT* 673 thou/uL (150-400); POLYS 93.6 %; RBC 3.05 mil/uL (4.20-5.00); RDW-CV 14.4 % (10.5-14.5); WBC 16.5 thou/uL (4.0-11.0)
[2020-01-15 06:49] LABS: ALBUMIN 1.9 g/dL (3.4-5.0); CALCIUM 7.6 mg/dL (8.5-10.1); CREATININE 0.9 mg/dL (0.6-1.3); POTASSIUM 4.8 mmol/L (3.5-5.1); TOTAL BILIRUBIN 0.6 mg/dL (<0.1-1.0); TOTAL PROTEIN 5.7 g/dL (6.4-8.2)
[2020-01-15 06:55] LABS: PREALBUMIN 14.9 mg/dL (18.0-35.7)
[2020-01-16] VITALS: BP 168/100
[2020-01-16 04:00] VITALS: BP 160/90
[2020-01-16 05:45] LABS: ABSOLUTE LYMPHOCYTES 0.6 thou/uL (0.8-5.3); ABSOLUTE MONOCYTES 0.6 thou/uL (0.0-1.2); ABSOLUTE NEUTROPHILS 17.5 thou/uL (1.6-8.1); BASOPHILS 0.2 %; HEMATOCRIT 30.2 % (37.0-47.0); HEMOGLOBIN 10.1 gm/dL (12.0-15.0); MCHC 33.5 g/dL (28.0-37.0); MCV 95.5 fL (80.0-100.0); MPV 7.5 fl. (7.2-11.1); NUCLEATED RBCS 0 /100WBC; PLATELET COUNT* 723 thou/uL (150-400); POLYS 93.8 %; RBC 3.16 mil/uL (4.20-5.00); RDW-CV 14.5 % (10.5-14.5); WBC 18.7 thou/uL (4.0-11.0)
[2020-01-16 06:23] LABS: CALCIUM 7.3 mg/dL (8.5-10.1); CREATININE 0.9 mg/dL (0.6-1.3); POTASSIUM 5.2 mmol/L (3.5-5.1); TOTAL BILIRUBIN 0.6 mg/dL (<0.1-1.0); TOTAL PROTEIN 5.4 g/dL (6.4-8.2)
[2020-01-16 08:00] VITALS: BP 160/94
[2020-01-16 11:21] VITALS: BP 109/61
[2020-01-16 17:35] VITALS: BP 130/77
[2020-01-16 20:00] VITALS: BP 119/65
[2020-01-17] VITALS: BP 121/67
[2020-01-17 04:00] VITALS: BP 127/64
[2020-01-17 08:00] VITALS: BP 152/72
[2020-01-17 09:27] LABS: ABSOLUTE BASOPHILS 0.1 thou/uL (0.0-0.2); ABSOLUTE LYMPHOCYTES 1.3 thou/uL (0.8-5.3); ABSOLUTE MONOCYTES 0.9 thou/uL (0.0-1.2); ABSOLUTE NEUTROPHILS 16.8 thou/uL (1.6-8.1); BASOPHILS 0.3 %; EOSINOPHILS 0.3 %; HEMATOCRIT 34.7 % (37.0-47.0); HEMOGLOBIN 11.5 gm/dL (12.0-15.0); MCH 32.3 pg (26.0-34.0); MCHC 33.2 g/dL (28.0-37.0); MCV 97.3 fL (80.0-100.0); MONOCYTES 4.6 %; MPV 7.5 fl. (7.2-11.1); NUCLEATED RBCS 0 /100WBC; POLYS 87.8 %; RBC 3.57 mil/uL (4.20-5.00); RDW-CV 14.6 % (10.5-14.5); WBC 19.1 thou/uL (4.0-11.0)
[2020-01-17 09:29] LABS: PLATELET COUNT* 612 thou/uL (150-400)
[2020-01-17 09:44] LABS: CALCIUM 7.7 mg/dL (8.5-10.1); POTASSIUM 4.5 mmol/L (3.5-5.1)
[2020-01-17 12:14] LABS: PCO2 38.3 mmHg (35.0-45.0); pH 7.464 (7.340-7.450)
[2020-01-17 12:17] LABS: PO2 47.3 mmHg (75.0-100.0)
[2020-01-17 12:20] VITALS: BP 113/60
[2020-01-17 17:00] VITALS: BP 110/57
[2020-01-17 20:00] VITALS: BP 101/75
[2020-01-18 02:30] VITALS: BP 127/75
[2020-01-18 04:00] VITALS: BP 148/79
[2020-01-18 08:00] VITALS: BP 119/75
[2020-01-18 09:28] LABS: HEMATOCRIT 32.1 % (37.0-47.0); MCH 32.6 pg (26.0-34.0); MCHC 34.4 g/dL (28.0-37.0); MCV 94.6 fL (80.0-100.0); MPV 6.8 fl. (7.2-11.1); NUCLEATED RBCS 0 /100WBC; RBC 3.39 mil/uL (4.20-5.00); RDW-CV 14.3 % (10.5-14.5); WBC 17.5 thou/uL (4.0-11.0)
[2020-01-18 09:34] LABS: PLATELET COUNT* 742 thou/uL (150-400)
[2020-01-18 09:40] LABS: CALCIUM 7.4 mg/dL (8.5-10.1); POTASSIUM 4.7 mmol/L (3.5-5.1); TOTAL BILIRUBIN 0.6 mg/dL (<0.1-1.0)
[2020-01-18 10:13] LABS: ABSOLUTE LYMPHOCYTES 0.9 thou/uL (0.8-5.3); ABSOLUTE MONOCYTES 0.9 thou/uL (0.0-1.2); ABSOLUTE NEUTROPHILS 15.8 thou/uL (1.6-8.1); PLATELET ESTIMATE ADEQUATE
[2020-01-18 12:00] VITALS: BP 129/76
[2020-01-18] MEDS ORDERED: AMBIEN5 MG PO (15:27)
[2020-01-18] MEDS ORDERED: LAXATIVE5 MG PO (15:29)
[2020-01-18] MEDS ORDERED: CHLORASEPTIC20 M1 MUCOUS MEM (15:30)
[2020-01-18] MEDS ORDERED: DIFLUCAN100 MG PO (15:31)
[2020-01-18] MEDS ORDERED: BENADRYL25 MG PO (15:32)
[2020-01-18] MEDS ORDERED: IPRAT-ALBUT 0.5-3 ML INH (15:35)
[2020-01-18] MEDS ORDERED: FLONASE 0.05%50 MCG NARES (15:36)
[2020-01-18] MEDS ORDERED: ELECTROLYTE PROTOCOL MISCELL (15:38)
[2020-01-18] MEDS ORDERED: MELATONIN10 M3 PO (15:39)
[2020-01-18] MEDS ORDERED: MILK OF MA400 MG/5 M PO (15:40)
[2020-01-18] MEDS ORDERED: MIRALAX119 GM PO (15:41)
[2020-01-18] MEDS ORDERED: MUCINEX600 MG PO (15:42)
[2020-01-18] MEDS ORDERED: MYLANTA MAXIMU355 ML PO (15:44)
[2020-01-18] MEDS ORDERED: THROAT LOZENGE1 EACH PO (15:45)
[2020-01-18] MEDS ORDERED: PRAVACHOL 20 MG20 M1 PER TUBE (15:46)
[2020-01-18] MEDS ORDERED: ROBITUSSIN100 MG/53 PO (15:48)
[2020-01-18] MEDS ORDERED: SOLU-MEDRO125 MG/24 IV PUSH (15:49)
[2020-01-18] MEDS ORDERED: TESSALON PERLE100 M1 PO (15:50)
[2020-01-18] MEDS ORDERED: HYDROCODONE-CH115 ML PO (15:54)
[2020-01-18] MEDS ORDERED: VENTOLIN HFA 1818 GM INH (15:54)
[2020-01-18] MEDS ORDERED: ZOFRAN4 MG IV PUSH (15:57)
== END 2020-01-18 17:00 | DRG 291 ==
LOC: M.ERS 23:32 → M.2W 01-02 01:45 → M.TBA-ER 01-02 01:45 → M.2W 01-02 02:40
PROVIDERS: Internal Medicine; Personal Emergency Response Attendant; Specialist; ADMIT Internal Medicine
DX: I11.0 Hypertensive heart disease with heart failure (principal); J18.9 Pneumonia, unspecified organism; J96.01 Acute respiratory failure with hypoxia; E43 Unspecified severe protein-calorie malnutrition; I48.20 Chronic atrial fibrillation, unspecified; I50.33 Acute on chronic diastolic (congestive) heart failure; I34.0 Nonrheumatic mitral (valve) insufficiency; I48.0 Paroxysmal atrial fibrillation; F32.9 Major depressive disorder, single episode, unspecified; I25.10 Atherosclerotic heart disease of native coronary artery without angina pectoris; F41.9 Anxiety disorder, unspecified; E78.5 Hyperlipidemia, unspecified; I49.5 Sick sinus syndrome; T46.2X5A Adverse effect of other antidysrhythmic drugs, initial encounter; E07.81 Sick-euthyroid syndrome; E66.9 Obesity, unspecified; G47.33 Obstructive sleep apnea (adult) (pediatric); Y92.89 Other specified places as the place of occurrence of the external cause; Z88.5 Allergy status to narcotic agent; Z88.0 Allergy status to penicillin; Z79.01 Long term (current) use of anticoagulants; Z98.891 History of uterine scar from previous surgery; Z95.0 Presence of cardiac pacemaker; Z79.82 Long term (current) use of aspirin; Z79.899 Other long term (current) drug therapy; Z87.891 Personal history of nicotine dependence; Z68.38 Body mass index [BMI] 38.0-38.9, adult; Z72.89 Other problems related to lifestyle

== ENCOUNTER → 2020-02-12 | Outpatient (CLI) | payer MEDICARE, OTHER ==
[~2020-02-12] MED LIST changes: +AMBIEN5 MG PO; +BENADRYL25 MG PO; +CHLORASEPTIC20 M1 MUCOUS MEM; +DIFLUCAN100 MG PO; +ELECTROLYTE PROTOCOL MISCELL; +FLONASE 0.05%50 MCG NARES; +HYDROCODONE-CH115 ML PO; +IPRAT-ALBUT 0.5-3 ML INH; +LAXATIVE5 MG PO; +MELATONIN10 M3 PO; +MILK OF MA400 MG/5 M PO; +MIRALAX119 GM PO; +MUCINEX600 MG PO; +MYLANTA MAXIMU355 ML PO; +PACERONE200 MG PO; +PRAVACHOL 20 MG20 M1 PER TUBE; +ROBITUSSIN100 MG/53 PO; +SOLU-MEDRO125 MG/24 IV PUSH; +TESSALON PERLE100 M1 PO; +THROAT LOZENGE1 EACH PO; +VENTOLIN HFA 1818 GM INH; +ZOFRAN4 MG IV PUSH
[2020-02-12 11:16] LABS: ABSOLUTE BASOPHILS 0.1 thou/uL (0.0-0.2); ABSOLUTE EOSINOPHILS 0.3 thou/uL (0.0-0.7); ABSOLUTE LYMPHOCYTES 1.6 thou/uL (0.8-5.3); ABSOLUTE NEUTROPHILS 3.8 thou/uL (1.6-8.1); BASOPHILS 1.3 %; EOSINOPHILS 4.8 %; HEMATOCRIT 37.3 % (37.0-47.0); HEMOGLOBIN 12.6 gm/dL (12.0-15.0); LYMPHOCYTES 23.5 %; MCHC 33.9 g/dL (28.0-37.0); MCV 94.4 fL (80.0-100.0); MPV 7.4 fl. (7.2-11.1); NUCLEATED RBCS 0 /100WBC; PLATELET COUNT* 396 thou/uL (150-400); POLYS 56.4 %; RBC 3.95 mil/uL (4.20-5.00); RDW-CV 16.1 % (10.5-14.5); WBC 6.8 thou/uL (4.0-11.0)
[2020-02-12 11:51] LABS: ALBUMIN 3.1 g/dL (3.4-5.0); CALCIUM 8.5 mg/dL (8.5-10.1); CREATININE 1.4 mg/dL (0.6-1.3); POTASSIUM 4.4 mmol/L (3.5-5.1); TOTAL BILIRUBIN 0.5 mg/dL (<0.1-1.0); TOTAL PROTEIN 6.5 g/dL (6.4-8.2)
== END ==
LOC: M.LAB 10:51
PROVIDERS: Nurse Practitioner Family
DX: I10 Essential (primary) hypertension (principal); J96.01 Acute respiratory failure with hypoxia; D72.829 Elevated white blood cell count, unspecified; E03.9 Hypothyroidism, unspecified

== ENCOUNTER → 2020-05-11 | Outpatient (CLI) | payer MEDICARE, OTHER ==
[~2020-05-11] MED LIST changes: +DIGITEK250 MC2 PO; +HYDROCODON-ACE1 EAC7 PO; +LEVO-T100 MCG PO; +NORVASC 2.5 MG2.5 M1 PO; +PREDNISONE50 MG PO
== END ==
LOC: M.RAD 16:44
PROVIDERS: ATTEND Internal Medicine Pulmonary Disease
DX: G47.33 Obstructive sleep apnea (adult) (pediatric) (principal)

== ENCOUNTER → 2020-05-29 | Outpatient (CLI) | payer MEDICARE, OTHER ==
[~2020-05-29] MED LIST changes: -DIGITEK250 MC2 PO; -HYDROCODON-ACE1 EAC7 PO; -LEVO-T100 MCG PO; -NORVASC 2.5 MG2.5 M1 PO; -PREDNISONE50 MG PO
== END ==
LOC: M.CT 11:00
DX: J90 Pleural effusion, not elsewhere classified (principal); R93.89 Abnormal findings on diagnostic imaging of other specified body structures; I51.7 Cardiomegaly; J98.4 Other disorders of lung; I50.9 Heart failure, unspecified; R91.1 Solitary pulmonary nodule; I70.0 Atherosclerosis of aorta

== ENCOUNTER 2020-08-30 18:52 | Emergency (ER) | payer MEDICARE, OTHER ==
[~2020-08-30] VITALS: Ht 167.6 cm; Wt 90.7 kg
[2020-08-30] MEDS ORDERED: NORVASC 2.5 MG2.5 M1 PO (19:07)
[2020-08-30] MEDS ORDERED: LEVO-T100 MCG PO (19:07)
[2020-08-30] MEDS ORDERED: DIGITEK250 MC2 PO (19:07)
[2020-08-30] MEDS ORDERED: HYDROCODON-ACE1 EAC7 PO (19:59)
[2020-08-30] MEDS ORDERED: PREDNISONE50 MG PO (19:59)
[2020-08-30 20:17] VITALS: BP 161/87
== END 2020-08-30 20:19 | disposition home or self-care (01) ==
LOC: M.ERS 18:52
DX: S63.681A Other sprain of right thumb, initial encounter (principal); I10 Essential (primary) hypertension; E78.5 Hyperlipidemia, unspecified; I48.91 Unspecified atrial fibrillation; Z88.5 Allergy status to narcotic agent; Z98.890 Other specified postprocedural states; Z88.0 Allergy status to penicillin; Z88.2 Allergy status to sulfonamides; X50.9XXA Other and unspecified overexertion or strenuous movements or postures, initial encounter; Y93.89 Activity, other specified; Y92.89 Other specified places as the place of occurrence of the external cause; Y99.8 Other external cause status

== ENCOUNTER → 2021-01-06 | Outpatient (CLI) | payer MEDICARE, OTHER ==
[~2021-01-06] MED LIST changes: +DIGITEK250 MC2 PO; +HYDROCODON-ACE1 EAC7 PO; +LEVO-T100 MCG PO; +NORVASC 2.5 MG2.5 M1 PO; +PREDNISONE50 MG PO
== END ==
LOC: M.LAB 12:08
PROVIDERS: ATTEND Registered Nurse
DX: I48.91 Unspecified atrial fibrillation (principal)

== ENCOUNTER → 2021-04-13 | Outpatient (CLI) | payer MEDICARE, OTHER ==
[2021-04-13 15:02] LABS: URINE BLOOD 2+ (Negative); URINE CLARITY CLEAR; URINE COLOR YELLOW; URINE GLUCOSE-RANDOM NEGATIVE (Negative); URINE KETONES TRACE (Negative); URINE LEUKOCYTES-REFLEX NEGATIVE (Negative); URINE NITRITE-REFLEX NEGATIVE (Negative); URINE PROTEIN NEGATIVE (Negative); URINE SPECIFIC GRAVITY >= 1.030 (1.005-1.030); URINE UROBILINOGEN 0.2 E.U./dl (0.2-1.0)
[2021-04-13 15:03] LABS: URINE BILIRUBIN 1+ (Negative)
[2021-04-13 15:04] LABS: ICTOTEST (BILI CONFIRMATORY) Negative (Negative)
[2021-04-13 15:09] LABS: BACTERIA-REFLEX 1-9 Few /HPF (None Seen); CRYSTALS None Seen /LPF (None Seen); MUCUS 4-6 Moderate strn/LPF (None Seen); SQUAMOUS 0-3 Few /LPF (0-3); URINE RBC 3-10 Few /HPF (0-2); URINE WBC-REFLEX 0-5 Rare /HPF (0-5)
[2021-04-13 15:10] LABS: HYALINE CASTS 0-3 Few /LPF (None Seen)
== END ==
LOC: M.LAB 14:49
PROVIDERS: ATTEND Dermatology
DX: M31.0 Hypersensitivity angiitis (principal)

== ENCOUNTER 2021-10-01 09:31 | Emergency (ER) | payer MEDICARE, OTHER ==
[~2021-10-01] VITALS: Ht 165.1 cm; Wt 94.3 kg
[~2021-10-01 09:31] MED LIST changes: -LEVO-T100 MCG PO; +LEVO-T50 MCG PO
[2021-10-01 11:16] LABS: ABSOLUTE BASOPHILS 0.1 thou/uL (0.0-0.2); ABSOLUTE EOSINOPHILS 0.3 thou/uL (0.0-0.7); ABSOLUTE LYMPHOCYTES 2.1 thou/uL (0.8-5.3); ABSOLUTE MONOCYTES 0.8 thou/uL (0.0-1.2); ABSOLUTE NEUTROPHILS 6.4 thou/uL (1.6-8.1); BASOPHILS 0.7 %; EOSINOPHILS 3.3 %; HEMATOCRIT 44.3 % (37.0-47.0); HEMOGLOBIN 14.6 gm/dL (12.0-15.0); LYMPHOCYTES 21.4 %; MCH 27.6 pg (26.0-34.0); MCV 83.7 fL (80.0-100.0); MONOCYTES 8.7 %; MPV 7.5 fl. (7.2-11.1); NUCLEATED RBCS 0 /100WBC; PLATELET COUNT* 306 thou/uL (150-400); POLYS 65.9 %; RBC 5.29 mil/uL (4.20-5.00); RDW-CV 18.2 % (10.5-14.5); WBC 9.7 thou/uL (4.0-11.0)
[2021-10-01 11:23] LABS: CALCIUM 9.2 mg/dL (8.5-10.1); POTASSIUM 4.1 mmol/L (3.5-5.1)
[2021-10-01] MEDS ORDERED: MITIGARE0.6 MG PO (11:27)
[2021-10-01 11:28] LABS: ALBUMIN 3.4 g/dL (3.4-5.0); TOTAL BILIRUBIN 0.5 mg/dL (<0.1-1.0); TOTAL PROTEIN 7.9 g/dL (6.4-8.2)
[2021-10-01] MEDS ORDERED: FLONASE 0.05%50 MCG NARES (11:28)
[2021-10-01] MEDS ORDERED: DILTIAZEM ER120 M2 PO (11:28)
[2021-10-01] MEDS ORDERED: HYDROXYZINE HCL10 M2 PO (11:29)
[2021-10-01] MEDS ORDERED: ZOLOFT 50 MG TA50 MG PO (11:31)
[2021-10-01] MEDS ORDERED: DOXYCYCLINE 10100 M2 PO (11:33)
[2021-10-01] MEDS ORDERED: TRIAMCINOLONE A15 G3 TOP (11:33)
[2021-10-01] MEDS ORDERED: TESSALON PERLE100 MG PO (11:33)
[2021-10-01] MEDS ORDERED: MECLIZINE HCL25 MG PO (12:34)
[2021-10-01 12:48] VITALS: BP 148/107
--- NOTE | 2021-10-01 19:06 | EKG ---
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 : 1950 Requested By: Lenin Bedoya Order Number: [id number] MD: Fabio Webb Measurements Intervals [place] Rate: 97 P: [place]: QRS: 17 QRSD: 100 T: 184 QT: 299 QTc: 380 Interpretive Statements Atrial fibrillation Ventricular premature complex Probable LVH with secondary repol abnrm ST depression, consider ischemia, diffuse lds Baseline wander in lead(s) V5,V6 Compared to ECG 01/01/2020 23:51:47 Ventricular premature complex(es) now present ST (T wave) deviation now present Possible ischemia now present Atrial-paced complex(es) or rhythm no longer present Electronically Signed On 10-01-2021 19:06:03 BEAUTY OPERATOR APPRENTICE by Fabio Webb [email or web address] <ELECTRONICALLY SIGNED> By: Fabio Webb MD, [facility] 10/01/21 1906 5 5 Fabio Webb MD, [facility] /EPI
== END 2021-10-01 12:49 | disposition home or self-care (01) ==
LOC: M.ERS 09:31
PROVIDERS: Emergency Medicine Emergency Medical Services
DX: H81.12 Benign paroxysmal vertigo, left ear (principal); I10 Essential (primary) hypertension; Z79.82 Long term (current) use of aspirin; Z79.899 Other long term (current) drug therapy; Z88.5 Allergy status to narcotic agent; Z88.0 Allergy status to penicillin; Z88.2 Allergy status to sulfonamides